=== PATIENT | female | born 1990 | race Caucasian/White ===

== ENCOUNTER 2020-07-29 15:10 | Outpatient (REF) | payer MEDICAID, SELFPAY ==
--- NOTE | ~2020-07-29 | XR_ITS ---
EXAMINATION: BILATERAL HAND. CLINICAL INFORMATION: Bilateral hand pain COMPARISON: None TECHNIQUE: 3 views each hand. FINDINGS: Right hand: There is no visible acute fracture, dislocation or subluxation. The joint spaces are maintained normal. The soft tissues are normal. Left hand: There is no visible acute fracture or dislocation subluxation. The joint spaces are maintained normal. The soft tissues are normal. XR/XR hand LT min 3V IMPRESSION: Unremarkable bilateral hand exam
--- NOTE | ~2020-07-29 | XR_ITS ---
EXAMINATION: BILATERAL HAND. CLINICAL INFORMATION: Bilateral hand pain COMPARISON: None TECHNIQUE: 3 views each hand. FINDINGS: Right hand: There is no visible acute fracture, dislocation or subluxation. The joint spaces are maintained normal. The soft tissues are normal. Left hand: There is no visible acute fracture or dislocation subluxation. The joint spaces are maintained normal. The soft tissues are normal. XR/XR hand RT min 3V IMPRESSION: Unremarkable bilateral hand exam
[2020-07-29 17:30] LABS: MANUAL DIFF FLAG NO
[2020-07-29 17:41] LABS: Basophils Percent Auto 0.3 % (0-2); Eosinophils Absolute Auto 0.1 X10*3/uL (0.0-0.4); Eosinophils Percent Auto 0.8 % (0-4); Hematocrit 39.4 % (37-47); Hemoglobin 12.9 g/dl (12.0-16.0); Imm Gran Abs Auto 0.03 X10*3/uL (0.00-0.03); Imm Gran Pct Auto 0.5 % (0.0-0.4); Lymphocytes Absolute Auto 1.3 X10*3/uL (1.2-4.9); Lymphocytes Percent Auto 19.7 % (20-40); Mean Corpuscular HGB Conc 32.7 g/dl (31.0-35.0); Mean Corpuscular Volume 94.7 fL (80-98); Mean Platelet Volume 11.9 fL (9.4-12.3); Monocytes Absolute Auto 0.5 X10*3/uL (0.1-1.2); Monocytes Percent Auto 7.3 % (2-11); Neutrophils Absolute Auto 4.7 X10*3/uL (2.0-8.3); Neutrophils Percent Auto 71.4 % (45-73); Platelet Count 196 X10*3/uL (160-400); Red Blood Count 4.16 X10*6/uL (4.20-5.50); Red Cell Distribution Width 11.9 % (11.0-16.0); White Blood Count 6.6 X10*3/uL (4.8-10.8)
[2020-07-29 18:07] LABS: Alanine Aminotransferase 12 U/L (0-31); Albumin Level 4.3 g/dL (3.5-5.0); Alkaline Phosphatase 54 U/L (39-117); Anion Gap 14 (12-20); Aspartate Amino Transferase 22 U/L (5-31); Bilirubin Total 0.5 mg/dL (0.0-1.0); Blood Urea Nitrogen 7 mg/dL (9-16); C Reactive Protein 0.61 mg/dL (< or = 0.50); Calcium 9.4 mg/dL (8.4-10.2); Carbon Dioxide 27 mmol/L (22-29); Chloride 102 mmol/L (96-108); Estimated Glomerular Filt Rate > 60; Glucose Random 72 mg/dL (60-115); Potassium 5.1 mmol/L (3.3-5.1); Sodium 138 mmol/L (135-145); Total Protein 7.6 g/dL (6.5-8.0)
[2020-07-29 18:44] LABS: Erythrocyte Sedimentation Rate 7 MM/HR (0-20)
[2020-07-30 07:44] LABS: HBc Num1 0.07 S/CO (0.00-0.79); Hepatitis A Antibody IgM 0.13 Index (0-0.79); Hepatitis B Core Antibody Nonreactive (Nonreactive); ~HepC Num1 0.09 S/CO (0.00-0.79); ~Hepatitis A Antibody IgM Nonreactive (Nonreactive); ~Hepatitis B Surface Antibody REACTIVE (Nonreactive); ~Hepatitis C Antibody Nonreactive (Nonreactive)
[2020-07-30 07:51] LABS: HBsAGNum1 0.22 S/CO (0.00-0.99); Hepatitis B Surface Antigen Negative (Negative)
[2020-07-31 23:57] LABS: TS Negative Control Passed; TS Panel A 0; TS Panel B 0; TS Positive Control Passed; TSpotTB Negative (SeeBelow)
== END 2020-07-29 15:11 | disposition home or self-care (01) ==
LOC: HO.LAB 15:10
PROVIDERS: Visit Provider Student in an Organized Health Care Education/Training Program
DX: L40.50 Arthropathic psoriasis, unspecified (principal)
CPT/HCPCS: 36415; 73130; 80053; 85025; 85652; 86140; 86481; 86704; 86706; 86709; 86803; 87340; 99212

== ENCOUNTER → 2020-11-07 09:04 | Outpatient (BNVA) | payer MEDICAID, SELFPAY | PROVIDERS: PCP Internal Medicine; Visit Provider Student in an Organized Health Care Education/Training Program ==

== ENCOUNTER 2020-12-17 08:14 | Outpatient (REF) | payer MEDICAID, SELFPAY ==
[2020-12-17 08:33] LABS: MANUAL DIFF FLAG NO
[2020-12-17 08:46] LABS: Basophils Percent Auto 0.6 % (0-2); Eosinophils Absolute Auto 0.1 X10*3/uL (0.0-0.4); Eosinophils Percent Auto 1.2 % (0-4); Hematocrit 38.5 % (37-47); Hemoglobin 13.1 g/dl (12.0-16.0); Lymphocytes Absolute Auto 1.4 X10*3/uL (1.2-4.9); Lymphocytes Percent Auto 29.5 % (20-40); Mean Corpuscular Hemoglobin 32.3 pg (27.0-33.0); Mean Corpuscular Volume 95.1 fL (80-98); Monocytes Absolute Auto 0.4 X10*3/uL (0.1-1.2); Monocytes Percent Auto 8.7 % (2-11); Neutrophils Absolute Auto 2.9 X10*3/uL (2.0-8.3); Platelet Count 167 X10*3/uL (160-400); Red Blood Count 4.05 X10*6/uL (4.20-5.50); Red Cell Distribution Width 12.2 % (11.0-16.0); White Blood Count 4.9 X10*3/uL (4.8-10.8)
[2020-12-17 09:27] LABS: Alanine Aminotransferase 17 U/L (0-31); Albumin Level 4.3 g/dL (3.5-5.0); Alkaline Phosphatase 43 U/L (39-117); Anion Gap 11 (12-20); Aspartate Amino Transferase 31 U/L (5-31); Bilirubin Total 1.2 mg/dL (0.0-1.0); Blood Urea Nitrogen 8 mg/dL (9-16); C Reactive Protein 0.08 mg/dL (< or = 0.50); Calcium 9.2 mg/dL (8.4-10.2); Carbon Dioxide 26 mmol/L (22-29); Chloride 106 mmol/L (96-108); Estimated Glomerular Filt Rate > 60; Glucose Random 83 mg/dL (60-115); Potassium 4.4 mmol/L (3.3-5.1); Sodium 139 mmol/L (135-145)
[2020-12-17 09:37] LABS: Erythrocyte Sedimentation Rate 4 MM/HR (0-20)
== END 2020-12-17 08:15 | disposition home or self-care (01) ==
LOC: HO.LAB 08:14
PROVIDERS: PCP Internal Medicine; Visit Provider Student in an Organized Health Care Education/Training Program
DX: L40.50 Arthropathic psoriasis, unspecified (principal)
CPT/HCPCS: 36415; 80053; 85025; 85652; 86140

== ENCOUNTER 2020-12-23 12:29 | Outpatient (REF) | payer MEDICAID, SELFPAY ==
[2020-12-23 13:50] LABS: Alanine Aminotransferase 13 U/L (0-31); Albumin Level 4.9 g/dL (3.5-5.0); Alkaline Phosphatase 49 U/L (39-117); Anion Gap 13 (12-20); Aspartate Amino Transferase 20 U/L (5-31); Bilirubin Total 0.4 mg/dL (0.0-1.0); Blood Urea Nitrogen 9 mg/dL (9-16); Calcium 9.6 mg/dL (8.4-10.2); Carbon Dioxide 29 mmol/L (22-29); Chloride 103 mmol/L (96-108); Estimated Glomerular Filt Rate > 60; Glucose Random 78 mg/dL (60-115); Potassium 4.5 mmol/L (3.3-5.1); Sodium 140 mmol/L (135-145); Total Protein 7.9 g/dL (6.5-8.0)
== END 2020-12-23 12:30 | disposition home or self-care (01) ==
LOC: HO.LAB 12:29
PROVIDERS: PCP Internal Medicine; Visit Provider Nurse Practitioner Family
DX: L40.50 Arthropathic psoriasis, unspecified (principal)
CPT/HCPCS: 36415; 80053

== ENCOUNTER 2021-02-16 11:32 | Outpatient (REF) | payer MEDICAID, SELFPAY ==
--- NOTE | ~2021-02-16 | XR_ITS ---
EXAMINATION: XR ANKLE, RIGHT CLINICAL INFORMATION: Right ankle pain. COMPARISON: None TECHNIQUE: AP, lateral, and mortise views of the right ankle. FINDINGS: The ankle mortise is symmetric. No appreciable talar osteochondral injuries. No fracture. Alignment is anatomic. Joint spaces are maintained. No joint effusion. XR/XR ankle RT 2V IMPRESSION: Normal right ankle.
== END 2021-02-16 11:33 | disposition home or self-care (01) ==
LOC: HO.XRAY 11:32
PROVIDERS: PCP Internal Medicine; Visit Provider Nurse Practitioner Family
DX: M25.571 Pain in right ankle and joints of right foot (principal); L40.50 Arthropathic psoriasis, unspecified
CPT/HCPCS: 73600; 99212

== ENCOUNTER → 2021-05-19 13:08 | Outpatient (BNVA) | payer MEDICAID, SELFPAY | PROVIDERS: PCP Internal Medicine; Visit Provider Nurse Practitioner Family | DX: L40.50 Arthropathic psoriasis, unspecified (principal) | CPT/HCPCS: 99212 ==

== ENCOUNTER 2021-06-12 08:00 | Outpatient (REF) | payer MEDICAID, SELFPAY ==
--- NOTE | 2021-06-12 | PFT_ITS ---
FLOWS: FEV1 89% of predicted at 2.73 L. FVC 95% of predicted at 3.44 L. FEV1 to FVC ratio of 0.79. Positive bronchodilator response. LUNG VOLUMES: Total lung capacity 95% of predicted at 4.68 L. Residual volume 81% of predicted at 1.15 L. Slow vital capacity 101% of predicted at 3.54 L. Expiratory reserve volume 83% of predicted at 1.07 L. Diffusion capacity is normal. IMPRESSION: No obstructive or restrictive ventilatory defect. No bronchodilator response except in small to medium airways. This test results can be consistent with quiescent asthma. Clinical correlation is advised. MD ORLANDO Boyd/MODL / [id number]
== END 2021-06-12 08:01 | disposition home or self-care (01) ==
LOC: HO.RESP 08:00
PROVIDERS: PCP Registered Nurse; Visit Provider Registered Nurse
DX: R06.2 Wheezing (principal)
CPT/HCPCS: 94060; 94727; 94729

== ENCOUNTER 2021-07-06 07:55 | Outpatient (REF) | payer MEDICAID, SELFPAY ==
[2021-07-06 09:43] LABS: Hematocrit 41.1 % (37.0-47.0); Hemoglobin 13.7 g/dl (12.0-16.0); Mean Corpuscular HGB Conc 33.3 g/dl (31.0-35.0); Mean Corpuscular Hemoglobin 32.5 pg (27.0-33.0); Mean Corpuscular Volume 97.4 fL (80.0-98.0); Mean Platelet Volume 11.2 fL (9.4-12.3); Platelet Count 165 X10*3/uL (160-400); Red Blood Count 4.22 X10*6/uL (4.20-5.50); Red Cell Distribution Width 11.9 % (11.0-16.0); White Blood Count 7.1 X10*3/uL (4.8-10.8)
[2021-07-06 10:07] LABS: Alanine Aminotransferase 20 U/L (0-31); Albumin Level 4.5 g/dL (3.5-5.0); Anion Gap 13 (12-20); Aspartate Amino Transferase 19 U/L (5-31); Bilirubin Total 0.3 mg/dL (0.0-1.0); Blood Urea Nitrogen 13 mg/dL (9-16); C Reactive Protein 0.07 mg/dL (< or = 0.50); Calcium 9.7 mg/dL (8.4-10.2); Carbon Dioxide 26 mmol/L (22-29); Chloride 105 mmol/L (96-108); Estimated Glomerular Filt Rate > 60; Glucose Random 81 mg/dL (60-115); Potassium 5.2 mmol/L (3.3-5.1); Sodium 139 mmol/L (135-145); Total Protein 7.7 g/dL (6.5-8.0)
[2021-07-06 10:08] LABS: Alkaline Phosphatase 49 U/L (39-117)
[2021-07-06 10:23] LABS: HCG Quantitative < 2 mIU/mL
[2021-07-06 10:31] LABS: Erythrocyte Sedimentation Rate 2 MM/HR (0-20)
[2021-07-06 15:03] LABS: CT PCR NOT DETECTED (Not Detect.); NG PCR NOT DETECTED (Not Detect.)
[2021-07-09 18:56] LABS: HPV mRNA E6/E7 rflx Not Detected (Not Detected)
== END 2021-07-06 07:56 | disposition home or self-care (01) ==
LOC: HO.LAB 07:55
PROVIDERS: Nurse Practitioner Family; PCP Registered Nurse; Visit Provider Obstetrics & Gynecology
DX: Z12.4 Encounter for screening for malignant neoplasm of cervix (principal); Z11.51 Encounter for screening for human papillomavirus (HPV); N93.9 Abnormal uterine and vaginal bleeding, unspecified; Z20.2 Contact with and (suspected) exposure to infections with a predominantly sexual mode of transmission; L40.50 Arthropathic psoriasis, unspecified
CPT/HCPCS: 36415; 80053; 81003; 81025; 84443; 84702; 85027; 85652; 86140; 87491; 87591; 87624; 88142; 99202

== ENCOUNTER 2022-01-12 14:21 | Outpatient (REF) | payer MEDICAID, SELFPAY ==
[2022-01-12 14:33] LABS: MANUAL DIFF FLAG NO
[2022-01-12 15:43] LABS: Basophils Percent Auto 0.5 % (0-2); Eosinophils Absolute Auto 0.1 X10*3/uL (0.0-0.4); Eosinophils Percent Auto 0.6 % (0-4); Hematocrit 41.9 % (37.0-47.0); Hemoglobin 13.7 g/dl (12.0-16.0); Imm Gran Abs Auto 0.02 X10*3/uL (0.00-0.03); Imm Gran Pct Auto 0.3 % (0.0-0.4); Lymphocytes Absolute Auto 1.5 X10*3/uL (1.2-4.9); Lymphocytes Percent Auto 18.8 % (20-40); Mean Corpuscular HGB Conc 32.7 g/dl (31.0-35.0); Mean Corpuscular Hemoglobin 31.3 pg (27.0-33.0); Mean Corpuscular Volume 95.7 fL (80.0-98.0); Mean Platelet Volume 11.3 fL (9.4-12.3); Monocytes Absolute Auto 0.5 X10*3/uL (0.1-1.2); Monocytes Percent Auto 6.3 % (2-11); Neutrophils Absolute Auto 5.7 x10*3/uL (2.0-8.3); Neutrophils Percent Auto 73.5 % (45-73); Platelet Count 179 X10*3/uL (160-400); Red Blood Count 4.38 X10*6/uL (4.20-5.50); Red Cell Distribution Width 11.9 % (11.0-16.0); White Blood Count 7.8 X10*3/uL (4.8-10.8)
[2022-01-12 16:08] LABS: Alanine Aminotransferase 9 U/L (0-31); Albumin Level 4.7 g/dL (3.5-5.0); Alkaline Phosphatase 53 U/L (39-117); Anion Gap 14 (12-20); Aspartate Amino Transferase 13 U/L (5-31); Bilirubin Total 0.3 mg/dL (0.0-1.0); Blood Urea Nitrogen 12 mg/dL (9-16); C Reactive Protein 0.16 mg/dL (< or = 0.50); Calcium 10.1 mg/dL (8.4-10.2); Carbon Dioxide 28 mmol/L (22-29); Chloride 103 mmol/L (96-108); Estimated Glomerular Filt Rate > 60; Glucose Random 81 mg/dL (60-115); Potassium 4.5 mmol/L (3.3-5.1); Sodium 140 mmol/L (135-145); Total Protein 7.7 g/dL (6.5-8.0)
[2022-01-12 16:44] LABS: Erythrocyte Sedimentation Rate 5 MM/HR (0-20)
[2022-01-13 07:28] LABS: HBc Num1 0.06 S/CO (0.00-0.79); HBsAGNum1 0.19 S/CO (0.00-0.99); Hepatitis A Antibody IgM 0.27 Index (0-0.79); Hepatitis B Core Antibody Nonreactive (Nonreactive); Hepatitis B Surface Antigen Negative (Negative); ~HepC Num1 0.13 S/CO (0.00-0.79); ~Hepatitis A Antibody IgM Nonreactive (Nonreactive); ~Hepatitis B Surface Antibody REACTIVE (Nonreactive); ~Hepatitis C Antibody Nonreactive (Nonreactive)
[2022-01-14 12:56] LABS: TS Negative Control Passed; TS Panel A 0; TS Panel B 0; TS Positive Control Passed; TSpotTB Negative (Negative)
== END 2022-01-12 14:22 | disposition home or self-care (01) ==
LOC: HO.LAB 14:21
PROVIDERS: Visit Provider Nurse Practitioner Family
DX: L40.50 Arthropathic psoriasis, unspecified (principal)
CPT/HCPCS: 36415; 80053; 85025; 85652; 86140; 86481; 86704; 86706; 86709; 86803; 87340; 99212

== ENCOUNTER 2022-03-04 15:19 | Outpatient (REF) | payer MEDICAID, SELFPAY ==
--- NOTE | ~2022-03-04 | US_ITS ---
EXAMINATION: US PELVIS COMPLETE US PELVIS ENDOVAGINAL CLINICAL INFORMATION: Abnormal uterine and vaginal bleeding COMPARISON: 02/22/2017 TECHNIQUE: Transabdominal and transvaginal images of the pelvis were obtained. FINDINGS: UTERUS: Anteverted, anteflexed. Normal size and contour, measuring 8.6 x 3.7 x 4.4 cm (cervix to fundus x AP x transverse). Uniform, homogeneous endometrium measures 1.2 cm in width. RIGHT OVARY: Normal size and echogenicity measuring 2.9 x 2.2 x 1.8 cm. LEFT OVARY: Normal size and echogenicity measuring 3.1 x 2.8 x 2.8 cm. Again seen is a simple 1.1 cm paraovarian cyst for which no imaging follow-up is recommended. FREE FLUID: Trace physiologic pelvic free fluid. US/US pelvic and transvaginal IMPRESSION: Normal pelvic ultrasound.
== END 2022-03-04 15:20 | disposition home or self-care (01) ==
LOC: HO.US 15:19
PROVIDERS: PCP Registered Nurse; Visit Provider Obstetrics & Gynecology
DX: N93.9 Abnormal uterine and vaginal bleeding, unspecified (principal)
CPT/HCPCS: 76830; 76856

== ENCOUNTER → 2022-05-25 13:30 | Outpatient (BNVA) | payer MEDICAID, SELFPAY | PROVIDERS: PCP Registered Nurse; Visit Provider Obstetrics & Gynecology | DX: N93.9 Abnormal uterine and vaginal bleeding, unspecified (principal) | CPT/HCPCS: 99212 ==

== ENCOUNTER 2022-07-12 13:31 | Outpatient (REF) | payer MEDICAID, SELFPAY ==
--- NOTE | ~2022-07-12 | XR_ITS ---
Examination: Bilateral hands and right foot. CLINICAL INDICATION: Pain. COMPARISON: Bilateral hand 07/29/2020 TECHNIQUE: 3 views each hand and 3 views right foot. FINDINGS: Right foot: There is no visible acute fracture, dislocation or subluxation. The joint spaces are maintained normal without any bony erosive changes or spurring. The ankle mortise and subtalar joint is normal. Bilateral hand: The joint spaces are maintained normal without any bony erosive changes, spurring or soft tissue swelling. No acute fracture or dislocation seen. There is a small bone fragment at the tip of left ulnar styloid process likely old injury. The soft tissues are normal. XR/XR hand RT min 3V IMPRESSION: Unremarkable right foot. Unremarkable bilateral hand exam. Small bone fragment at the tip of left ulnar styloid process likely old injury.
--- NOTE | ~2022-07-12 | XR_ITS ---
Examination: Bilateral hands and right foot. CLINICAL INDICATION: Pain. COMPARISON: Bilateral hand 07/29/2020 TECHNIQUE: 3 views each hand and 3 views right foot. FINDINGS: Right foot: There is no visible acute fracture, dislocation or subluxation. The joint spaces are maintained normal without any bony erosive changes or spurring. The ankle mortise and subtalar joint is normal. Bilateral hand: The joint spaces are maintained normal without any bony erosive changes, spurring or soft tissue swelling. No acute fracture or dislocation seen. There is a small bone fragment at the tip of left ulnar styloid process likely old injury. The soft tissues are normal. XR/XR foot RT 2V IMPRESSION: Unremarkable right foot. Unremarkable bilateral hand exam. Small bone fragment at the tip of left ulnar styloid process likely old injury.
--- NOTE | ~2022-07-12 | XR_ITS ---
EXAMINATION: XR FOOT, LEFT CLINICAL INFORMATION: Pain COMPARISON: Previous x-ray April 2015 TECHNIQUE: AP, lateral, and oblique views of the left foot. FINDINGS: There is abnormal alignment/subluxation or dislocation of the DIP joint of the fourth toe. There also appears to be bone loss or resorption of the middle phalanx of the fourth toe. Bone alignment is otherwise normal. No other fracture or dislocation. Joint spaces are otherwise normal. There is soft tissue swelling of the fourth toe. XR/XR foot LT 2V IMPRESSION: Abnormal appearing fourth toe with dislocation or subluxation at the DIP joint and bone loss or resorption of the middle phalanx. Findings will be communicated by the [employer] work flow trend investigator.
--- NOTE | ~2022-07-12 | XR_ITS ---
Examination: Bilateral hands and right foot. CLINICAL INDICATION: Pain. COMPARISON: Bilateral hand 07/29/2020 TECHNIQUE: 3 views each hand and 3 views right foot. FINDINGS: Right foot: There is no visible acute fracture, dislocation or subluxation. The joint spaces are maintained normal without any bony erosive changes or spurring. The ankle mortise and subtalar joint is normal. Bilateral hand: The joint spaces are maintained normal without any bony erosive changes, spurring or soft tissue swelling. No acute fracture or dislocation seen. There is a small bone fragment at the tip of left ulnar styloid process likely old injury. The soft tissues are normal. XR/XR hand LT min 3V IMPRESSION: Unremarkable right foot. Unremarkable bilateral hand exam. Small bone fragment at the tip of left ulnar styloid process likely old injury.
[2022-07-12 15:17] LABS: MANUAL DIFF FLAG NO
[2022-07-12 17:03] LABS: Basophils Percent Auto 0.7 % (0-2); Eosinophils Percent Auto 0.5 % (0-4); Hematocrit 37.4 % (37.0-47.0); Hemoglobin 12.1 g/dl (12.0-16.0); Imm Gran Abs Auto 0.01 X10*3/uL (0.00-0.03); Imm Gran Pct Auto 0.2 % (0.0-0.4); Lymphocytes Absolute Auto 1.5 X10*3/uL (1.2-4.9); Lymphocytes Percent Auto 25.8 % (20-40); Mean Corpuscular HGB Conc 32.4 g/dl (31.0-35.0); Mean Corpuscular Hemoglobin 30.1 pg (27.0-33.0); Mean Platelet Volume 11.7 fL (9.4-12.3); Monocytes Absolute Auto 0.6 X10*3/uL (0.1-1.2); Neutrophils Absolute Auto 3.7 x10*3/uL (2.0-8.3); Neutrophils Percent Auto 62.8 % (45-73); Platelet Count 208 X10*3/uL (160-400); Red Blood Count 4.02 X10*6/uL (4.20-5.50); Red Cell Distribution Width 12.3 % (11.0-16.0); White Blood Count 5.9 X10*3/uL (4.8-10.8)
[2022-07-12 17:22] LABS: Alanine Aminotransferase 12 U/L (0-31); Albumin Level 4.4 g/dL (3.5-5.0); Alkaline Phosphatase 55 U/L (39-117); Anion Gap 11 (12-20); Aspartate Amino Transferase 17 U/L (5-31); Bilirubin Total 0.3 mg/dL (0.0-1.0); Blood Urea Nitrogen 10 mg/dL (9-16); C Reactive Protein 0.63 mg/dL (< or = 0.50); Calcium 9.4 mg/dL (8.4-10.2); Carbon Dioxide 29 mmol/L (22-29); Chloride 104 mmol/L (96-108); Estimated Glomerular Filt Rate > 60; Glucose Random 77 mg/dL (60-115); Potassium 4.9 mmol/L (3.3-5.1); Sodium 139 mmol/L (135-145); Total Protein 7.4 g/dL (6.5-8.0)
[2022-07-12 17:50] LABS: Erythrocyte Sedimentation Rate 11 MM/HR (0-20)
== END 2022-07-12 13:32 | disposition home or self-care (01) ==
LOC: HO.LAB 13:31
PROVIDERS: PCP Registered Nurse; Visit Provider Nurse Practitioner Family
DX: L40.50 Arthropathic psoriasis, unspecified (principal); M79.641 Pain in right hand; M79.642 Pain in left hand; M79.671 Pain in right foot; M79.672 Pain in left foot
CPT/HCPCS: 36415; 73130; 73620; 80053; 85025; 85652; 86140; 99212

== ENCOUNTER → 2022-07-28 07:43 | Outpatient (BNVA) | payer MEDICAID, SELFPAY | PROVIDERS: PCP Registered Nurse; Visit Provider Nurse Practitioner Family | DX: L40.50 Arthropathic psoriasis, unspecified (principal) | CPT/HCPCS: 99212 ==

== ENCOUNTER 2022-09-06 10:04 | Outpatient (AMB) | payer MEDICAID, SELFPAY ==
[2022-09-06 10:21] VITALS: BP 108/62; PULSE 54; TEMP 36.6; O2SAT 100; BMI 19.2
--- NOTE | 2022-09-06 10:21 | A.OFFVIS_ITS ---
Intake Vital Signs 09/06/22 10:21 Height 5 ft 4 in Weight 111 lb 12.39 oz BMI 19.2 BP 108/62 Blood Pressure Location Rt brachial Position Sitting Pulse 54 Pulse Source Pulse Oximeter Temp 97.9 F Temp Source Skin Pulse Oximetry (%) 100 Intake Visit Reasons: psoriatic arthritis Intake Note: pain in bl feet, hands and right knee. Leaving for vacation on Tuesday asking for med in place of injections Shoemaking Cutter Required: Yes Shoemaking Cutter Name: [id number] Information Interpreted: clinical only Accompanied by: Other Relationship Allergies No Known Allergies [No Known Allergies*] Allergy (Verified 09/06/22 10:24) HPI HPI Comments History of Present Illness Details The patient returns for evaluation of her psoriatic arthritis. She is here with a friend. We use the [employer] service to facilitate the history and exam. She still has some stiffness and pain in the hands and the right knee. She was supposed to have started the Humira but has yet to receive the prescription. She has been communicating with the pharmacy but does not se em to understand why the delivery was not made. She had a course of prednisone in July that was helpful but she finished that. [facility] Medical History Psoriatic arthritis Surgical History H/O hernia repair Family History Mother Uterus cancer Social History Alcohol intake: current Patient Tobacco Use Status: Former Tobacco user Tobacco use type: Cigarette Cigarettes Per Day: 4 Years Smoked: 10 Substance Use Type: Marijuana Review of Systems Eyes Details: Negative for vision change, dry eyes,headaches and dizziness Skin/Breast Details: Psoriasis seems minimal at present. Negative for itching, hives, Raynaud's symptoms, sun sensitivity, and skin cancer Endo Details: Negative for polyuria and polydypsia Anthony/Lymph Details: Negative for excessive bruising or bleeding. Physical Exam Vital Signs: Last Vital Signs Temp 97.9 F 09/06/22 10:21 Pulse 54 09/06/22 10:21 BP 108/62 09/06/22 10:21 Pulse Ox 100 09/06/22 10:21 BMI result Body Mass Index 19.2 APPEARANCE: Patient in no acute distress EYES no redness, pupils equal and reactive to light, eyelids normal SKIN: ? Normal color and turgor.? Small dry patch of skin on the right scalp. JOINT EXAM: Cervical Spine:? Full range of motion without pain; no tenderness. Thoracic Spine:? No tenderness on palpation. Lumbar Spine:? Alignment normal.? Full range of motion without pain, no tenderness. Hands: LEFT:? Mild swelling and tenderness of the 3rd MCP, thumb IP, and 2nd 3rd PIP joints. No other areas of tenderness or swelling. ? RIGHT:? Mild swelling and tenderness at the thumb MCP and the 2nd and 3rd D IP joints. These joints have some pain with range of motion. Other joints are without tenderness or swelling. No flexor tendon triggering. Wrists:? Normal pain-free range of motion without tenderness, swelling, increased warmth or erythema. Elbows: Normal pain-free range of motion without tenderness, swelling, increased warmth or erythema. Shoulders:?? LEFT: Full range of motion without pain. ? No tenderness, weakness, swelling, increased warmth or erythema. ? RIGHT: Full range of motion without pain.? No tenderness, weakness, swelling, increased warmth or erythema. Hips:? Full range of motion without pain. Hip bursa: No tenderness. Knees: LEFT: Slight pain with extremes of normal range of motion. This some minimal medial tenderness without redness or effusion. ? RIGHT: Normal pain-free range of motion.? No tenderness, swelling, increased warmth or erythema.? There is no effusion present Ankles:? Normal pain-free range of motion without tenderness, swelling, increased warmth or erythema. Feet:? LEFT:? Swelling and pain of the great toe and 4th toe, no erythema or warmth. ? RIGHT:? Swelling, pain and limited mobility of the great toe.? Swelling and pain of the 3rd and 4th toe, no erythema or warmth. ? Results Reviewed Results Reviewed: Laboratory Tests 07/12/22 07/12/22 07/12/22 15:15 15:15 15:15 WBC 5.9 Hgb 12.1 ESR 11 Creatinine 0.76 C-Reactive Protein 0.63 H Assessment & Plan Assessment & Plan (1) Long-term use of immunosuppressant medication: Code(s): Z79.60 - termination clerk (current) use of unspecified immunomodulators and immunosuppressants (2) Psoriatic arthritis: Comment: Humira - July 2020- restarted due to active synovitis on exam- patient self stopped August 2021. Methotrexate - 11/2017- 07/2019- self stopped Enbrel - 12/13-07/2019- self-stopped Code(s): L40.50 - Arthropathic psoriasis, unspecified Plan Psoriatic arthritis still with some scattered, asymmetric synovitis mostly in the hands. We will have the nurse discuss with her on the communication issues that led to her not getting delivery of the Humira from the pharmacy. I think she needs to call them directly to arrange a delivery time. We will resume a short course of prednisone here to try to get her to the point when she gets a start with Humira. Follow-up at 6-8 weeks seems reasonable. Hopefully by then she will have received a number of doses of the Humira and will be doing better. Medications: New prednisone 3 daily for 3 days, 2 daily for 3 days, then 1 daily for 3 days; 18 tabs 0RF L40.50 - Arthropathic psoriasis, unspecified Coding Level of Care Code Est Pt Level 3 (04247) Diagnoses Long-term use of immunosuppressant medication Z79.60 Psoriatic arthritis L40.50
== END 2022-09-06 11:25 | disposition home or self-care (01) ==
LOC: HO.RHE 10:04
PROVIDERS: PCP Registered Nurse; Visit Provider Internal Medicine Rheumatology
DX: Z79.60 Long term (current) use of unspecified immunomodulators and immunosuppressants (principal); L40.50 Arthropathic psoriasis, unspecified
CPT/HCPCS: 99213

== ENCOUNTER → 2022-09-06 10:04 | Outpatient (BNVA) | payer MEDICAID, SELFPAY | PROVIDERS: PCP Registered Nurse; Visit Provider Internal Medicine Rheumatology | DX: L40.50 Arthropathic psoriasis, unspecified (principal); Z79.60 Long term (current) use of unspecified immunomodulators and immunosuppressants | CPT/HCPCS: 99212 ==

== ENCOUNTER 2023-05-31 14:02 | Outpatient (AMB) | payer MEDICAID, SELFPAY ==
--- NOTE | 2023-05-31 14:03 | MHC.OFFVIS ---
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 Complaining of burning on urination over the last few days Last Pap/HPV was negative in 07/19 [facility] Medical History Psoriatic arthritis Surgical History H/O hernia repair Family History Mother Uterus cancer Social History Household Members Other:: Female partner Housing: House Alcohol intake: current Patient Tobacco Use Status: Former Tobacco user Tobacco use type: Cigarette Cigarettes Per Day: 4 Years Smoked: 10 Substance Use Type: Marijuana Current occupational status: employed Current occupation: [employer] Sexual orientation: Lesbian/Martinez/Homosexual Gender identity: Female Female Reproductive History Menstrual Duration of menses: 3-5 days Date of last menstrual period: 05/11/23 Total pregnancies: 0 Date of last pap smear: 07/07/21 Review of Systems Const All systems reviewed & are unremarkable except as noted in HPI and below Card Reports as per HPI Resp Reports as per HPI GI Reports as per HPI and Reports no additional complaints Reports as per HPI Physical Exam Vital Signs: Last Vital Signs BP 96/62 05/31/23 14:07 BMI result Body Mass Index 19.9 Const General: cooperative, healthy appearing and comfortable Chest Chest palpation & inspection: normal inspection of the chest and normal palpation of entire chest wall Breast/axilla inspection: normal inspection of the breasts and normal inspection of the axillae Breast/axilla palpation: normal palpation of the breasts, normal palpation of the axillae and no axillary lymphadenopathy Resp Effort & Inspection: normal respiratory effort Auscultation: clear to auscultation bilaterally Percussion: percussion normal Cardio Palpation: normal PMI Rate: regular rate Rhythm: regular rhythm Heart sounds: no murmurs and no rubs Peripheral pulses: Peripheral pulses 2+ throughout GI Inspection: Yes normal to inspection Palpation (GI): Soft to palpation, nontender, no guarding, not rigid and No hepatosplenomegaly present Percussion: Yes normal to percussion Auscultation: normal bowel sounds Rectal Exam - Female: deferred General: Yes bladder normal to palpation External Female Exam: No lesion Speculum Exam - Vagina: normal appearance of the vagina, normal palpation, normal vaginal discharge and not erythematous Speculum Exam - Cervix: normal appearance of the cervix and normal palpation Bimanual exam- vagina & uterus: normal bimanual exam, normal palpation, uterine size normal, bladder normal to palpation, consistency normal and normal palpation Bimanual Exam- Adnexa, other: normal adnexae, no masses and no tenderness Assessment & Plan Assessment & Plan (1) Well woman exam: Code(s): Z01.419 - Encounter for gynecological examination (general) (routine) without abnormal findings Plan: Urine dip was negative, the patient was reassured Cotesting not indicated this year. Counseled the patient about the recommended dietary allowance of 1000 mg of Calcium & 600 IU of vitamin D. The patient was instructed to perform monthly self-breast exams and to schedule an annual exam in a year; All questions answered and the patient verbalized understanding. Instructed the patient to schedule annual exam in a year Coding Level of Care Code Est Pt Prev Care 18-39y(62035) Diagnoses Well woman exam Z01.419
[2023-05-31 14:07] VITALS: BP 96/62; BMI 19.9
== END 2023-05-31 14:33 | disposition home or self-care (01) ==
PROVIDERS: Visit Provider Obstetrics & Gynecology
DX: Z01.419 Encounter for gynecological examination (general) (routine) without abnormal findings (principal)
CPT/HCPCS: 99395

== ENCOUNTER → 2023-05-31 14:02 | Outpatient (BNVA) | payer MEDICAID, SELFPAY | PROVIDERS: Visit Provider Obstetrics & Gynecology | DX: Z01.419 Encounter for gynecological examination (general) (routine) without abnormal findings (principal) | CPT/HCPCS: 99395 ==